=== PATIENT | male | born 1985 | race Caucasian/White ===

== ENCOUNTER 2017-08-17 21:16 | Emergency (ER) | payer SELFPAY ==
--- NOTE | 2017-08-17 23:32 | CT ---
CT RIGHT HAND WITHOUT CONTRAST: HISTORY: Hand puncture wound from a mill washer. COMPARISON: None. FINDINGS: There is extensive subcutaneous emphysema along the wrist, distal to the transverse carpal ligament. There is gas along the ulnar neurovascular bundle. The bones appear to be intact. No fracture. No malalignment. There is radiopaque material along the periphery of the thumb nail. Evidence of old injury to the small finger proximal phalanx neck. No evidence of tendinous rupture. IMPRESSION: 1. Extensive subcutaneous emphysema along the volar aspect of the wrist, predominantly surrounding t he ulnar neurovascular bundle. No evidence for a tendinous rupture, although evaluation is limited w ith a CT exam. 2. Evidence of old injury of the small finger proximal phalanx neck. POS: RON
[2017-08-17] MEDS ORDERED: Sulfameth/Trimethoprim DS 800-160mg TAB ONE (23:45)
[2017-08-17] MEDS ORDERED: Triple Antibiotic Oint 1 GM Packet ONE (23:49)
== END 2017-08-18 | disposition home or self-care (01) ==
LOC: MADERS 21:16
DX: S61.431A Puncture wound without foreign body of right hand, initial encounter (principal); T79.7XXA Traumatic subcutaneous emphysema, initial encounter; I10 Essential (primary) hypertension; F17.210 Nicotine dependence, cigarettes, uncomplicated; W26.8XXA Contact with other sharp object(s), not elsewhere classified, initial encounter